=== PATIENT | male | born 1980 | race Caucasian/White ===

== ENCOUNTER 2017-12-30 17:18 | Emergency (ER) | payer SELFPAY ==
[~2017-12-30] VITALS: Ht 175.3 cm; Wt 77.1 kg
[2017-12-30] MEDS: KETOROLAC 30 MG/ML VIAL IM ONE (18:15)
--- NOTE | 2017-12-30 18:15 | ED EENT ---
History of Present Illness General Chief Complaint: General Problems/Pain Stated Complaint: FACE SWELLING;FEVER Nursing Triage Note: AMBULATED TO ROOM 04 WITH COMPLAINTS OF RIGHT SIDED EAR PAIN THAT RADIATES INTO RIGHT JAW. ALSO COMPLAINS OF DIARRHEA. Source: patient, family (mom) Exam Limitations: no limitations History of Present Illness Date Seen by Provider: Dec 30, 2017 Time Seen by Provider: 17:54 Initial Comments The patient presents to the ER by private conveyance with his mother and chief complaint that he is presently in a bad living situation and going to move back in with his mom. He says he's been having some pain off and on for the past several weeks but last couple days has gotten very bad on the right side of his face and ear says he thinks it starts from the ear and radiates down to his jaw. He has bad teeth and has not seen a dentist for them. He's not having any discharge or drainage from the ears. Says he had a subjective fever this morning took some aspirin and antibiotic that his brother had left over and he felt instantly better. He's been dealing with nausea vomiting and diarrhea for the past couple weeks as well. Allergies and Home Medications Allergies Coded Allergies: No Known Drug Allergies (Unverified , 12/30/17) Home Medications No Active Prescriptions or Reported Meds Patient Home Medication List Home Medication List Reviewed: Yes Review of Systems Review of Systems Constitutional: No chills; fever, malaise Eyes: Denies Blindness, Denies Blurred Vision Ears: Denies Dizziness, Denies Pain Nose: denies clots, denies congestion, denies pain Mouth: see HPI; denies clots, denies loose teeth; pain Throat: no symptoms reported Respiratory: No cough, No short of breath Cardiovascular: No chest pain, No palpitations Gastrointestinal: No abdominal pain, No constipation; diarrhea, nausea, vomiting Past Wfblczc-Lpvhpm-Bgzzns Hx Patient Social History Alcohol Use: Denies Use Recreational Drug Use: Yes Drug of Choice: POT Smoking Status: Current Everyday Smoker Recent Foreign Travel: No Contact w/Someone Who Travel: No Recent Infectious Disease Expo: No Past Medical History Surgeries: No Respiratory: No Cardiac: No Neurological: Yes (STRESS SEIZURES) Genitourinary: No Gastrointestinal: No Musculoskeletal: No Endocrine: No HEENT: No Cancer: No Psychosocial: No Integumentary: No Physical Exam Vital Signs Vital Signs - First Documented 12/30/17 17:40 Temp 98.1 Pulse 83 Resp 16 B/P (MAP) 144/92 (109) Pulse Ox 100 Height, Weight, BMI Height: 5'9.00" Weight: 170lbs. oz. 77.389532yg; BMI Method:Estimated General Appearance: WD/WN, no apparent distress Eyes: bilateral eye normal inspection, bilateral eye PERRL, bilateral eye EOMI Ears: right ear erythema (canal), right ear tenderness (canal), right ear other (mild injection of the TM but otherwise clear with mucoid effusion); left ear canal normal, left ear TM normal; bilateral ear auricle normal Nose: normal inspection, active bleeding Mouth/Throat: No normal mouth inspection, No pharynx normal, No dental tenderness; other (extensive dental caries without evidence of abscess, tonsillar swelling, erythema or exudate) Neck: non-tender, full range of motion, supple, normal inspection Cardiovascular: normal peripheral pulses, regular rate, rhythm (85), no edema Respiratory: chest non-tender, lungs clear, normal breath sounds, no respiratory distress, no accessory muscle use Gastrointestinal: normal bowel sounds, non tender, soft Neurologic/Psychiatric: alert, normal mood/affect, oriented x 3 Skin: normal color, warm/dry, other (he has a chronic mass under his right Negron been there for over a year. He says is draining white stuff in the past when he cut on it.) Progress/Results/Core Measures Results/Orders My Orders Orders - ANAYELI SR Ketorolac Injection (Toradol Injection) (12/30/17 18:15) Vital Signs/I&O 12/30/17 17:40 Temp 98.1 Pulse 83 Resp 16 B/P (MAP) 144/92 (109) Pulse Ox 100 Blood Pressure Mean: 109 Progress Progress Note : Time: 18:13 Progress Note The chronic mass under his right jaw does not appear to be an abscess or infectious or inflammatory at all. It does appear by history more likely to be a sebaceous cyst and we have referred him to primary care doctor about getting it drained. He has an otitis effusion on the right side as well as what looks like a canal infection. We'll put him on some topical antibiotics with a steroid and it. Since he's having the nausea vomiting diarrhea intermittently have him follow up with primary care doctor at working that up. Vital signs are normal he has no fever and does not present any acute way. His abdomen is tender and unremarkable. We'll treat him with some topical steroids, Zofran and Imodium outpatient already get set up with a primary care doctor to workup the myriad other complaints. Departure Impression Primary Impression: Otitis media with effusion Qualified Codes: H65.91 - Unspecified nonsuppurative otitis media, right ear Additional Impressions: Otitis externa of right ear Qualified Codes: H60.61 - Unspecified chronic otitis externa, right ear Dental caries Mass of submandibular region Gastroenteritis and colitis, viral Disposition: HOME, SELF-CARE Condition: Stable Departure-Patient Inst. Decision time for Depature: 18:17 Referrals: NO,LOCAL PHYSICIAN (PCP) Primary Care Physician Patient Instructions: LOCAL PHYSICIAN LIST, Outer Ear Infection (DC) Add. Discharge Instructions: For your outer ear infection we will put you on a topical antibiotic to take 4 drops in the right ear 4 times a day for the next week. You can use Tylenol 1000 mg in addition to ibuprofen 800 mg for pain as well as hot compresses over the ear. supply chain consultant some Flonase and start using it once a day each nostril to help open up the middle ear's today can drain and this will help some of the pain. For your teeth you should follow-up with the dentist. For your nausea vomiting and diarrhea you can use the Zofran every 6 hours as needed for the nausea and if her diarrhea persists he can take Imodium 2 tablets followed by one tablet every 4 hours afterwards if you have loose stools and follow up with a primary care doctor in the next week or 2 for further evaluation and diagnosis. All discharge instructions reviewed with patient and/or family. Voiced understanding. Scripts Ondansetron (Ondansetron Odt) 4 Mg Tab.rapdis 4 MG PO Q6H PRN for NAUSEA/VOMITING, #8 TAB 0 Refills Prov: ANAYELI SR 12/30/17 Neomycin/Polymyxin B Sulf/Hc (Qcjhttdg-Voyeaejjz-Ml Ear Soln) 10 Ml Solution 4 DROPS OT QID for 7 Days, #10 ML 0 Refills Prov: ANAYELI SR 12/30/17 ANAYELI SR Dec 30, 2017 18:15
[2017-12-30] MEDS ORDERED: NEOM10SO8 OT (18:21)
[2017-12-30] MEDS ORDERED: ONDA4TAB11 PO (18:21)
[2017-12-30 18:32] VITALS: BP 144/92
== END 2017-12-30 18:32 | disposition home or self-care (01) ==
LOC: ER 17:20
DX: H65.91 Unspecified nonsuppurative otitis media, right ear (principal); H60.91 Unspecified otitis externa, right ear; K02.9 Dental caries, unspecified; A08.4 Viral intestinal infection, unspecified; R22.0 Localized swelling, mass and lump, head; F12.10 Cannabis abuse, uncomplicated; F17.200 Nicotine dependence, unspecified, uncomplicated
CPT/HCPCS: 96372; 99284